=== PATIENT | female | born 1975 | race Caucasian/White ===

== ENCOUNTER 2017-05-24 13:43 | Emergency (ER) | payer OTHER ==
--- NOTE | 2017-05-24 13:57 | PDOC ---
History of Present Illness <Jessica Duff - Last Filed: 05/24/17 15:47> - General History Source: Patient Exam Limitations: No Limitations - History of Present Illness Initial Comments: 05/24/17 15:10 The patient is a 41 year old female, with a significant past medical history of kidney stones, who presents to the emergency room complaining of hematuria and urinary frequency for approx. one day. The patient reports that yesterday at approx. 5-6 pm she had an episode of hematuria and noticed a change in urinary frequency. The patient reports she has had kidney stones in the past where she noticed a change in urinary frequency. The patient denies dysuria. The patient denies recent fever, chills, headache or dizziness. The patient denies nausea, vomiting, diarrhea or constipation. The patient denies abdominal pain or flank pain. Allergies: Sulfa (Sulfonamide Antibiotics) Surgical history: Appendectomy, two ureteral stents (one placed in 2004 and 2005 ) s/p obstructive kidney stones PCP: Dr. Barraza <Zachariah Masters - Last Filed: 05/24/17 16:18> - General Chief Complaint: Hematuria Stated Complaint: HEMATURIA AND FREQUENT URINATION Time Seen by Provider: 05/24/17 13:57 Past History <Jessica Duff - Last Filed: 05/24/17 15:47> <Zachariah Masters - Last Filed: 05/24/17 16:18> - Past Medical History Allergies/Adverse Reactions: Allergies Allergy/AdvReac Type Severity Reaction Status Date / Time Sulfa (Sulfonamide Allergy Intermediate Rash Verified 05/24/17 13:45 Antibiotics) Home Medications: Ambulatory Orders NK [No Known Home Medication] 05/24/17 Review of Systems - Review of Systems Comments:: 05/24/17 15:11 GENERAL/CONSTITUTIONAL: No fever or chills. No weakness. HEAD, EYES, EARS, NOSE AND THROAT: No change in vision. No ear pain or discharge. No sore throat. CARDIOVASCULAR: No chest pain or shortness of breath. RESPIRATORY: No cough, wheezing, or hemoptysis. GASTROINTESTINAL: No nausea, vomiting, diarrhea or constipation. GENITOURINARY: +Change in urinary frequency. +Hematuria. No dysuria. MUSCULOSKELETAL: No joint or muscle swelling or pain. No neck or back pain. SKIN: No rash NEUROLOGIC: No headache, vertigo, loss of consciousness, or change in strength/ sensation. ENDOCRINE: No increased thirst. No abnormal weight change. HEMATOLOGIC/LYMPHATIC: No anemia, easy bleeding, or history of blood clots. ALLERGIC/IMMUNOLOGIC: No hives or skin allergy. <Zachariah Masters - Last Filed: 05/24/17 16:18> *Physical Exam - Vital Signs Last Vital Signs Temp Pulse Resp BP Pulse Ox 98.3 F 62 18 112/74 99 05/24/17 13:44 05/24/17 13:44 05/24/17 13:44 05/24/17 13:44 05/24/17 13:44 - Physical Exam Comments: 05/24/17 15:11 GENERAL: Awake, alert, and fully oriented, in no acute distress HEAD: No signs of trauma EYES: PERRLA, EOMI, sclera anicteric, conjunctiva clear ENT: Auricles normal inspection, hearing grossly normal, nares patent, oropharynx clear without exudates. Moist mucosa NECK: Normal ROM, supple, no lymphadenopathy, JVD, or masses LUNGS: Breath sounds equal, clear to auscultation bilaterally. No wheezes, and no crackles HEART: Regular rate and rhythm, normal S1 and S2, no murmurs, rubs or gallops ABDOMEN: Soft, nontender, normoactive bowel sounds. No guarding, no rebound. No masses EXTREMITIES: Normal range of motion, no edema. No clubbing or cyanosis. No cords, erythema, or tenderness NEUROLOGICAL: Cranial nerves II through XII grossly intact. Normal speech, normal gait SKIN: Warm, Dry, normal turgor, no rashes or lesions noted. <Zachariah Masters - Last Filed: 05/24/17 16:18> ED Treatment Course - ADDITIONAL ORDERS Additional order review: Laboratory Results 05/24/17 05/24/17 14:10 14:10 Urine Color Yellow Urine Appearance Clear Urine pH 6.5 Ur Specific [place] > 1.030 H Urine Protein Negative Urine Glucose (UA) Negative Urine Ketones Negative Urine Blood Moderate H Urine Nitrite Negative Urine Bilirubin Negative Urine Urobilinogen 0.2 Ur Leukocyte Esterase Negative Urine HCG, Qual Negative - RADIOLOGY Radiograph Interpretation: 05/24/17 16:17 EXAM#: TYPE/EXAM: RESULT: [id number] US/KIDNEY / RENAL US [id number] US/PELVIC / BLADDER US Renal ultrasound Urinary bladder ultrasound Clinical information: evaluate for renal stone; hematuria no prior imaging studies are available at this facility for direct comparison. There is no hydronephrosis. The kidneys and urinary bladder demonstrate no definite calculus or mass lesion within the limitations of sonography. The kidneys appear unremarkable in position, cortical thickness, echogenicity and size. Each kidney measures approximate 9.7 cm in length. A post void residual volume of approximately 28 mL is noted. The prevoid volume was 314 mL. Flow is noted from the distal ureters into the urinary bladder. Impression: The kidneys demonstrate no sonographic abnormality. A post void residual urinary volume of 28 mL is seen. Reported By: Chalo Mancilla MD <Zachariah Masters - Last Filed: 05/24/17 16:18> Medical Decision Making - Medical Decision Making 05/24/17 15:47 Pt presents to the ED requesting renal and bladder US. Only complaints are urinary frequency and hematuria yesterday. Denies abdominal/flank pain, nausea or vomiting, other urinary complaints or fever. US is negative for obstruction. WIll discharge home. <Jessica Duff - Last Filed: 05/24/17 15:47> *DC/Admit/Observation/Transfer - Discharge Dispostion Admit: No <Jessica Duff - Last Filed: 05/24/17 15:47> - Attestations Scribe Attestion: 05/24/17 15:12 Documentation prepared by Zachariah Masters, acting as neuropsychology medical consultant for Jessica Duff MD. <Zachariah Masters - Last Filed: 05/24/17 16:18> Diagnosis at time of Disposition: Hematuria Qualifiers: Hematuria type: gross Qualified Code(s): R31.0 - Gross hematuria - Discharge Dispostion Disposition: HOME Condition at time of disposition: Good - Patient Instructions Printed Discharge Instructions: DI for Hematuria Additional Instructions: return to the ED for severe pain, pain with fever, nausea or vomiting. Also return or seek care elsewhere for dysuria. Follow up with your PMD.
[2017-05-24 14:04] VITALS: BP 112/74; PULSE 62; TEMP 98.3; BMI 21.2
[2017-05-24 14:26] LABS: URINE APPEARANCE CLEAR; URINE BILIRUBIN NEGATIVE (NEGATIVE); URINE COLOR YELLOW; URINE GLUCOSE (UA) NEGATIVE (NEGATIVE)
[2017-05-24 14:27] LABS: PH,URINE 6.5 (4.5-8); URINE KETONE NEGATIVE (NEGATIVE); URINE LEUK ESTERASE NEGATIVE (NEGATIVE); URINE NITRITE NEGATIVE (NEGATIVE); URINE PROTEIN NEGATIVE (NEGATIVE); URINE UROBILINOGEN 0.2 (0.2-1.0)
[2017-05-24 14:52] LABS: URINE BLOOD MODERATE (NEGATIVE)
== END 2017-05-24 16:04 | disposition home or self-care (01) ==
LOC: EDBD 13:43 → FER 13:43
DX: R31.0 Gross hematuria (principal)
CPT/HCPCS: 76775-TC; 76856-TC; 81003; 84703; 99282-25